=== PATIENT | male | born 1965 | race Caucasian/White ===

== ENCOUNTER 2016-12-21 00:44 | Emergency (ER) | payer MEDICARE, MEDICAID ==
[2013-12-24 20:05] VITALS: BMI 21.1
[~2016-12-21 00:44] MED LIST: BACTRIM DS TABL1 TAB PO; CATAFLAM50 MG PO; FLOMAX0.4 MG PO; HYDROCODONE-APA1 TAB PO; LAMICTAL100 MG PO; LEXAPRO10 MG PO; NORCO 5/325 TAB1 TA1 PO; PRAVACHOL20 MG PO; PRILOSEC20 MG PO; XANAX0.5 MG PO
== END 2016-12-21 02:01 | disposition home or self-care (01) ==
LOC: D.ER 00:44
DX: L02.811 Cutaneous abscess of head [any part, except face] (principal); K21.9 Gastro-esophageal reflux disease without esophagitis; F32.9 Major depressive disorder, single episode, unspecified

== ENCOUNTER 2019-07-12 23:45 | Emergency (ER) | payer MEDICARE, MEDICAID ==
[~2019-07-12] VITALS: Ht 180.3 cm; Wt 84.1 kg
[2019-07-12 23:48] VITALS: Ht 180.3 cm; Wt 84.1 kg
[2019-07-12] MEDS ORDERED: LEXAPRO20 MG PO (23:50)
[2019-07-12] MEDS ORDERED: DILANTIN30 MG PO ×2 (23:50→23:51)
[2019-07-12] MEDS ORDERED: SODIUM BICARBO650 MG PO (23:51)
[2019-07-12] MEDS ORDERED: BAYER CHEWABLE81 MG PO (23:51)
[2019-07-12] MEDS ORDERED: OMEPRAZOLE20 M1 PO (23:51)
[2019-07-12] MEDS ORDERED: REMERON30 MG PO (23:52)
[2019-07-12] MEDS ORDERED: FLOMAX0.4 MG PO (23:52)
[2019-07-12] MEDS ORDERED: ZETIA10 MG PO (23:52)
[2019-07-12] MEDS ORDERED: LAMICTAL100 MG PO (23:52)
[2019-07-12] MEDS ORDERED: ZYRTEC10 MG PO (23:53)
[2019-07-12] MEDS ORDERED: BENADRYL25 MG PO (23:53)
[2019-07-13 00:59] LABS: CALC OSMOLALITY 275 mosm/kg (275-300); CALCIUM 8.8 mg/dL (8.5-10.1); CARBON DIOXIDE 26.6 mmol/L (21.0-32.0); CHLORIDE - SERUM 101 mmol/L (98-107); GLUCOSE 111 mg/dL (74-106); POTASSIUM - SERUM 4.2 mmol/L (3.5-5.1); SODIUM 137 mmol/L (136-145); UREA NITROGEN 14 mg/dL (7-18); eGFR NON AFRICAN AMERICAN 82 mL/min (90-120)
[2019-07-13 01:01] LABS: BASOPHILS 0.2 % (0-2); EOSINOPHILS 1.2 % (0-7); HEMATOCRIT 47.2 % (42.0-54.0); HEMOGLOBIN 15.6 g/dL (13.5-17.5); IMMATURE GRANULOCYTES 0.7 % (0-5); LYMPHOCYTES 9.5 % (15-50); MCH 30.8 pg (26.0-34.0); MCHC 33.1 g/dL (31.0-37.0); MCV 93.3 fL (80.0-100.0); MEAN PLATELET VOLUME 10.6 fL (7.4-10.4); MONOCYTES 5.5 % (2-11); NEUTROPHILS 82.9 % (40-80); RBC 5.06 10x6/uL (4.20-6.10); WBC 13.2 10x3/uL (4.8-10.8)
[2019-07-13 01:02] LABS: PLATELET COUNT 210 10x3/uL (130-400)
[2019-07-13 01:06] LABS: ALBUMIN 4.1 g/dL (3.4-5.0); ALKALINE PHOSPHATASE 151 U/L (46-116); ALT (SGPT) 31 U/L (10-68); BILIRUBIN - TOTAL 0.16 mg/dL (0.2-1.3); PHENYTOIN (DILANTIN) 17.1 ug/mL (10.0-20.0); PROTEIN - SERUM 7.6 g/dL (6.4-8.2)
[2019-07-13 01:41] VITALS: BP 131/81
== END 2019-07-13 01:50 | disposition home or self-care (01) ==
LOC: D.ER 23:45
PROVIDERS: Family Medicine
DX: R56.9 Unspecified convulsions (principal); Z79.84 Long term (current) use of oral hypoglycemic drugs